=== PATIENT | male | born 2000 | race Two or more races ===

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

== ENCOUNTER 2022-07-30 14:15 | Emergency (ER) | payer MEDICAID ==
[~2022-07-30] VITALS: Ht 167.6 cm; Wt 67.0 kg
[2022-07-30 14:25] VITALS: BP 149/83
[2022-07-30 15:46] LABS: Basophils # (auto) 0.1 10 ^3/uL (0-0.2); Basophils % (auto) 0.9 % (0.0-2.0); Eosinophils # (auto) 0.1 10 ^3/uL (0-0.8); Eosinophils % (auto) 0.8 % (0.0-7.0); Hematocrit 50.4 % (41.0-53.0); Hemoglobin 16.9 g/dL (13.5-17.5); Lymphocytes # (auto) 2.6 10 ^3/uL (0.4-5.4); Lymphocytes % (auto) 27.4 % (10.0-50.0); Mean Corpuscular Hgb Conc. 33.6 g/dL (32.0-36.0); Mean Corpuscular Volume 86.1 fL (80.0-100.0); Monocytes # (auto) 0.5 10 ^3/uL (0-1.3); Monocytes % (auto) 5.8 % (0.0-12.0); Neutrophils # (auto) 6.1 10 ^3/uL (1.6-8.6); Neutrophils % (auto) 65.1 % (37.0-80.0); Nucleated Red Blood Cells % 0.1 %; Red Blood Cells 5.85 10^6/uL (4.5-5.90); White Blood Cell 9.3 10^3/uL (4.4-10.8)
[2022-07-30 16:11] LABS: Calcium 10.7 mg/dL (8.5-10.1)
[2022-07-30 16:14] LABS: Albumin 5.1 g/dL (3.4-5.0); BUN/Creatinine Ratio 13.3; Magnesium 2.4 mg/dL (1.6-2.6)
[2022-07-30 16:17] LABS: Bilirubin, Total 0.9 mg/dL (0.2-1.0); Total Protein 8.6 g/dL (6.4-8.2)
[2022-07-30] MEDS ORDERED: LORazepam 0.5 MG TAB PO ONE (16:45)
== END 2022-07-30 19:48 | disposition left against medical advice (07) ==
LOC: ER 14:15
DX: F41.9 Anxiety disorder, unspecified (principal); Z79.899 Other long term (current) drug therapy
CPT/HCPCS: 36415; 71045; 80053; 83735; 84443; 84484; 85025

== ENCOUNTER 2023-03-30 11:09 | Emergency (ER) | payer MEDICAID ==
[~2023-03-30] VITALS: Ht 170.2 cm; Wt 75.3 kg
[2023-03-30 13:38] VITALS: BP 138/72; PULSE 86; RESP 18; TEMP 98.5; O2SAT 100
[2023-03-30 14:09] LABS: Urine Bacteria NONE SEEN /hpf (None Seen); Urine Blood Negative /uL (Negative); Urine Clarity Clear (Clear); Urine Color Colorless (Yellow); Urine Protein, UAD Negative (Negative); Urine Specific Gravity 1.004 (1.001-1.035); Urine Urobilinogen Normal (Negative); Urine WBC <1 /hpf (0 - 3); Urine pH 6.5 (5.0-8.0)
[2023-03-30] MEDS ORDERED: IBUP1TAB5 PO (14:41)
[2023-03-30] MEDS ORDERED: METH-1181 PO (14:41)
== END 2023-03-30 15:07 | disposition home or self-care (01) ==
LOC: ER 11:09
DX: M54.50 Low back pain, unspecified (principal); Z79.1 Long term (current) use of non-steroidal anti-inflammatories (NSAID); Z79.899 Other long term (current) drug therapy
CPT/HCPCS: 81001

== ENCOUNTER 2023-04-08 16:45 | Emergency (ER) | payer MEDICAID ==
[~2023-04-08] VITALS: Ht 167.6 cm; Wt 73.9 kg
[~2023-04-08 16:45] MED LIST: IBUP1TAB5 PO; METH-1181 PO
[2023-04-08 18:53] VITALS: BP 157/95; PULSE 95; RESP 16; TEMP 98.6; O2SAT 97
[2023-04-08] MEDS ORDERED: TETANUS-DIPTH-ACEL PERTUSSIS 0.5ML SYR Tdap IM ONE (19:45)
== END 2023-04-08 20:01 | disposition home or self-care (01) ==
LOC: ER 16:45
DX: S01.112A Laceration without foreign body of left eyelid and periocular area, initial encounter (principal); J45.909 Unspecified asthma, uncomplicated; X99.8XXA Assault by other sharp object, initial encounter; Y93.89 Activity, other specified; Y92.89 Other specified places as the place of occurrence of the external cause; Y99.8 Other external cause status
CPT/HCPCS: 12011; 90471; 90715

== ENCOUNTER 2023-10-07 14:08 | Emergency (ER) | payer MEDICAID ==
[~2023-10-07] VITALS: Ht 167.6 cm; Wt 79.4 kg
[2023-10-07 18:55] VITALS: BP 128/86; PULSE 78; RESP 16; TEMP 98.2; O2SAT 97
[2023-10-07] MEDS ORDERED: IBUP1TAB5 PO (18:58)
[2023-10-07] MEDS ORDERED: CYCL-839 PO (18:58)
[2023-10-07] MEDS ORDERED: DexAMETHasone 4 MG TAB PO ONE (19:00)
[2023-10-07] MEDS: HYDROcodone-ACET 5/325MG TAB PO ONE (19:10)
[2023-10-07] MEDS: DexAMETHasone SOD PHOS 10MG/1ML VIAL INJ IM ONE (19:17)
== END 2023-10-07 19:50 | disposition home or self-care (01) ==
LOC: ER 14:08
DX: S29.011A Strain of muscle and tendon of front wall of thorax, initial encounter (principal); J45.909 Unspecified asthma, uncomplicated; X58.XXXA Exposure to other specified factors, initial encounter; Y93.89 Activity, other specified; Y92.89 Other specified places as the place of occurrence of the external cause; Y99.8 Other external cause status
CPT/HCPCS: 71111; 96372; 99283; J1100